=== PATIENT | male | born 1985 | race Caucasian/White ===

== ENCOUNTER 2021-09-04 18:15 | Emergency (ER) | payer BC, SELFPAY ==
[2021-09-04 18:27] VITALS: BP 151/89; PULSE 79; RESP 16; TEMP 36.3; O2SAT 100
--- NOTE | 2021-09-04 18:33 | ED.SKABFB ---
HPI - Skin/Abscess/Foreign Bdy General Chief complaint: Skin/Abscess/Foreign Body Stated complaint: tick bite Time Seen by Provider: 09/04/21 18:30 Source: patient Mode of arrival: ambulatory Limitations: no limitations History of Present Illness HPI narrative: Mr. Dow is a 35-year-old male patient presenting to the clinic today with complaints of possible tick bite to the right lower back/hip. He reports that this tick was on his right upper hip x2 to 3 days. He has a small rash area to where the tick was attached. He denies any fever, body aches, or chills. Stated he thought he removed the tick intact. Related Data Allergies Allergy/AdvReac Type Severity Reaction Status Date / Time No Known Allergies Allergy Verified 09/04/21 18:33 Review of Systems Review of Systems: Pertinent positives per HPI. Patient denies any fever, chills, rash, headache, visual changes, dizziness, cough, runny nose, sore throat, shortness of breath, chest pain, palpitations, nausea, vomiting, diarrhea, constipation, abdominal pain, or any urinary issues. PMFSH Comments At the time of my signature, I reviewed and agree with the nursing past medical, surgical, social, and family history. There is no relevant family history pertinent to the patient complaint. Exam Narrative: General: Well-developed, well nourished, in no apparent distress Head: Normocephalic, atraumatic. Cardio: Regular rate and rhythm, s1 and s2 normal, no murmur appreciated. Resp: Clear to auscultation bilaterally, no rhonchi, rales, wheezing or rubs. Integumentary: [place], warm, and dry, dime size red raised mildly tender area to the right upper posterior hip. Tick appears to be fully intact and there is no sign of retained foreign body in the skin. No drainage Course Course Emergency Course: Portions of this record may have been created with voice recognition software. Level of Care: Express Care Visit Vital Signs Vital signs: Vital Signs Temperature 36.3 C L 09/04/21 18:27 Pulse Rate 79 09/04/21 18:27 Respiratory Rate 16 09/04/21 18:27 Blood Pressure 151/89 H 09/04/21 18:27 Pulse Oximetry 100 09/04/21 18:27 Oxygen Delivery Room Air 09/04/21 18:27 Temperature 36.3 C L 09/04/21 18:27 Pulse Rate 79 09/04/21 18:27 Respiratory Rate 16 09/04/21 18:27 Blood Pressure 151/89 H 09/04/21 18:27 Pulse Oximetry 100 09/04/21 18:27 Oxygen Delivery Room Air 09/04/21 18:27 Vital signs reviewed MDM - Skin/Abscess/Foreign Bdy MDM Narrative Medical decision making narrative: At the time of visit patient is resting comfortably on the exam table. States he has the tick with him and it appears to be a completely intact. Has a small dime size red indurated area to the right upper posterior hip. I will give him a prophylactic dose of doxycycline. Supportive measures were discussed with the patient he voiced understanding of discharge instructions and agrees with the treatment plan. Differential Diagnosis Differential diagnosis: Likely cellulitis and insect bites Discharge Plan Discharge Clinical Impression: Tick bite of right hip Qualifiers: Encounter type: initial encounter Qualified Code(s): S70.261A - Insect bite (nonvenomous), right hip, initial encounter Patient Disposition: Home, Self-Care Condition: Stable Instructions: Antibiotic Form, Tick Bite (ED) Additional Instructions: Take doxycycline 200 mg for a one-time dose May take Tylenol/Motrin for any fever or pain. Increase fluids and stay well-hydrated Follow-up with your PCP in 3 to 5 days if symptoms persist or sooner if they worsen. Prescriptions: New doxycycline hyclate 100 mg capsule 200 mg PO DAILY 1 Days Qty: 2 0RF Follow-up/Referrals: PHYSICIAN,AUTO BODY REPAIRMAN [Primary Care Provider] - Time of Disposition: 18:35 Quality NIHSS Nursing Documentation ED NIHSS nursing documentation: reviewed/agree
== END 2021-09-04 18:37 | disposition home or self-care (01) ==
PROVIDERS: Emergency Provider Nurse Practitioner Family
DX: S70.261A Insect bite (nonvenomous), right hip, initial encounter (principal); W57.XXXA Bitten or stung by nonvenomous insect and other nonvenomous arthropods, initial encounter; Z86.16 Personal history of COVID-19
CPT/HCPCS: 99203; G0463